=== PATIENT | female | born 1990 | race Caucasian/White ===

== ENCOUNTER 2025-03-05 13:52 | Emergency (ER) | payer MEDICAID ==
[~2025-03-05] VITALS: Ht 149.9 cm; Wt 73.0 kg
[2025-03-05 14:36] VITALS: TEMP 36.9; O2SAT 100
[2025-03-05 15:27] LABS: BASOPHILS % 0.6 % (0.0-2.0); EOSINOPHILS % 4.8 % (0.0-5.0); HEMATOCRIT. 39.8 % (36.0-48.0); HEMOGLOBIN. 13.2 g/dL (12.0-16.0); LYMPHOCYTES % 31.4 % (20.0-50.0); MEAN PLATELET VOLUME 9.0 fl (7.4-10.4); MONOCYTES % 6.4 % (2.0-8.0); NEUTROPHILS % 56.8 % (40.0-76.0); PLATELET 255 x1000/uL (130-400); RED BLOOD CELL COUNT 4.46 mill/uL (4.2-5.4); RED CELL DISTRIBUTION WIDTH 13.9 % (11.6-14.6)
[2025-03-05 15:29] LABS: CREATININE 0.8 mg/dL (0.6-1.0); UREA NITROGEN BLOOD 5 mg/dL (9-23)
[2025-03-05 15:35] LABS: HCG SCREEN POSITIVE
[2025-03-05 15:46] LABS: B-HCG QUANTITATIVE 1597 mIU/mL (<6)
[2025-03-05] MEDS ORDERED: DOCO200C5 MT (16:52)
[2025-03-05] MEDS ORDERED: PREN1COM12 MT (16:53)
[2025-03-05 17:04] VITALS: BP 116/70; PULSE 72; RESP 19; O2SAT 100
== END 2025-03-05 17:08 | disposition home or self-care (01) ==
LOC: ER 13:52 → EDBD 13:52 → ER 17:08
DX: O26.891 Other specified pregnancy related conditions, first trimester (principal); R10.30 Lower abdominal pain, unspecified; R14.0 Abdominal distension (gaseous); Z3A.08 8 weeks gestation of pregnancy; Z79.899 Other long term (current) drug therapy
CPT/HCPCS: 36415; 76801; 80048; 84702; 84703; 85025; 99284